=== PATIENT | female | born 1945 | race Caucasian/White ===

== ENCOUNTER → 2024-07-23 | Outpatient (CLI) | payer MEDICARE, SELFPAY ==
--- NOTE | 2024-07-23 12:35 | XR_ITS ---
Examination: Bone densitometry Date and time of exam:July 23, 2024 1213 hrs. Indications: Menopause age 51. Also wrist fracture proximal history osteoporosis Technique: Forearm and hip total bone mineralization values of an calculated. Peak reference and age match control results have been displayed. Findings: Forearm total bone mineralization is0.426 gm/cm2. This is 2.7 standard deviations below peak reference. This is 0.5 standard deviations above age-matched controls. Hip total bone mineralization is 0.735 gm/cm2 This is 1.7 standard deviations below peak reference. This is 0.4 standard deviations below age-matched controls Impression: There is osteopenia based on forearm measurements. There is osteopenia based on hip measurements 4 mm before meals is decreased 3.6% compared with June 12 2021 Hip mineralization is decreased 1.0% compared with June 12 2021
--- NOTE | 2024-07-23 13:00 | XR_ITS ---
Examination: Screening digital mammography, bilateral Computer aided detection 3-D breast Tomosynthesis, bilateral Date and time of exam: 07/23/2024, 11:56 AM Comparisons: 07/23/2023 Indications: Screening Technique: Nonmagnified MLO, CC views of the breasts to been obtained, reconstructed from 3-D Tomosynthesis images. R2 computer aided detection program utilized for evaluation of suspicious masses and/or abnormal calcifications. 3-D Tomosynthesis images obtained. Technologist: Findings: There are scattered areas of fibroglandular density. No evidence of abnormal masses or suspicious calcifications. Impression: BI-RADS category 1: Negative findings (within normal) Recommend 1 year follow-up mammogram
== END | disposition home or self-care (01) ==
PROVIDERS: PCP Family Medicine; Referring Provider Family Medicine; Visit Provider Family Medicine
DX: Z12.31 Encounter for screening mammogram for malignant neoplasm of breast (principal); R92.313 Mammographic fatty tissue density, bilateral breasts; M85.89 Other specified disorders of bone density and structure, multiple sites
CPT/HCPCS: 77063; 77067; 77080

== ENCOUNTER → 2024-07-23 | Outpatient (CLI) | payer MEDICARE, SELFPAY ==
[2024-07-23 11:01] LABS: Basophils # (Auto) 0.1 Thou/mm3 (0.0-0.2); Basophils % (Auto) 2 % (0-2.5); Eosinophils # (Auto) 0.3 Thou/mm3 (0.0-0.5); Eosinophils % (Auto) 5 % (0-10); Hematocrit 39.8 % (36.0-46.0); Hemoglobin 12.9 g/dL (12.0-16.0); Immature Granulocytes % (Auto) 0 % (0-0); Immature Granulocytes Auto 0.01 Thou/mm3 (0.00-0.00); Lymphocytes # (Auto) 2.3 Thou/mm3 (1.0-4.8); Lymphocytes % (Auto) 35 % (10-50); Mean Corpuscular HGB Conc 32.4 g/dl (31.0-37.0); Mean Corpuscular Hemoglobin 31.4 pg (25.0-35.0); Mean Corpuscular Volume 97 fL (80-100); Monocytes # (Auto) 0.6 Thou/mm3 (0.0-0.8); Monocytes % (Auto) 8 % (0-12); Neutrophils # (Auto) 3.3 Thou/mm3 (1.8-7.7); Neutrophils % (Auto) 50 % (37-80); Nucleated Red Blood Cell % 0 /100 WBC (0); Platelet Count 231 Thou/mm3 (140-440); RDW Standard Deviation 46.8 fL (36.4-46.3); Red Blood Count 4.11 Miln/mm3 (4.00-5.20); White Blood Count 6.5 Thou/mm3 (3.6-11.0)
[2024-07-23 11:21] LABS: Alanine Aminotransferase 19 U/L (10-49); Albumin/Globulin Ratio 1.5 (1.2-2.2); Alkaline Phosphatase 53 U/L (46-116); Anion Gap 7 (7-16); Aspartate Amino Transferase 27 U/L (0-34); BUN/Creatinine Ratio 19 Ratio (12-20); Bilirubin,Total 0.6 mg/dL (0.3-1.2); Blood Urea Nitrogen 13 mg/dL (9-23); Calcium 9.2 mg/dL (8.3-10.6); Calcium (Corrected) 9.2 mg/dL (8.5-10.1); Carbon Dioxide 27.5 mMol/L (20.0-31.0); Chloride 105 mMol/L (98-107); Cholesterol 189 mg/dL (132-200); Creatinine (Component) 0.7 mg/dL (0.6-1.3); Globulin 2.6 gm/dL (2.3-3.5); Glucose 92 mg/dL (74-106); HDL Cholesterol 64 mg/dL (40-60); LDL Cholesterol,Calculated 109 mg/dL (0-130); Osmolality,Calculated 277 (275-295); Potassium 4.6 mMol/L (3.4-5.1); Sodium 139 mMol/L (136-145); Thyroid Stimulating Hormone 2.42 uIU/mL (0.55-4.78); Total Protein 6.6 gm/dL (5.7-8.2); Triglycerides 81 mg/dL (30-150); eGFR > 60 See Note
== END | disposition home or self-care (01) ==
PROVIDERS: PCP Family Medicine; Referring Provider Family Medicine; Visit Provider Family Medicine
DX: E78.2 Mixed hyperlipidemia (principal)
CPT/HCPCS: 36415; 80053; 80061; 84443; 85025

== ENCOUNTER 2024-08-19 10:10 | Day surgery (SDC) | payer MEDICARE, SELFPAY ==
--- NOTE | 2024-08-18 11:36 | EKG_ITS ---
[facility] Test Date: 2024-08-18 Pat Name: ANUSHA MARTINO Department: Room: - Gender: Female Sas Bi Developer: ADINA : 1945 Requested By: Tung Burnett Order Number: [id number] Reading MD: Tung Burnett Measurements Intervals [place] Rate: 79 P: 59 OK: 152 QRS: 8 QRSD: 80 T: 20 QT: 350 QTc: 402 Interpretive Statements SINUS RHYTHM POSSIBLE LEFT ATRIAL ENLARGEMENT [-0.1mV P WAVE IN V1/V2] No previous ECG available for comparison /[id number]/S0/[id number]/[id number].pdf
[2024-08-18 13:34] LABS: Basophils # (Auto) 0.1 Thou/mm3 (0.0-0.2); Basophils % (Auto) 1 % (0-2.5); Eosinophils # (Auto) 0.4 Thou/mm3 (0.0-0.5); Eosinophils % (Auto) 4 % (0-10); Hematocrit 40.2 % (36.0-46.0); Hemoglobin 13.3 g/dL (12.0-16.0); Immature Granulocytes % (Auto) 0 % (0-0); Immature Granulocytes Auto 0.03 Thou/mm3 (0.00-0.00); Lymphocytes # (Auto) 2.6 Thou/mm3 (1.0-4.8); Lymphocytes % (Auto) 31 % (10-50); Mean Corpuscular HGB Conc 33.1 g/dl (31.0-37.0); Mean Corpuscular Hemoglobin 31.8 pg (25.0-35.0); Mean Corpuscular Volume 96 fL (80-100); Monocytes # (Auto) 0.7 Thou/mm3 (0.0-0.8); Monocytes % (Auto) 8 % (0-12); Neutrophils # (Auto) 4.6 Thou/mm3 (1.8-7.7); Neutrophils % (Auto) 55 % (37-80); Nucleated Red Blood Cell % 0 /100 WBC (0); Platelet Count 238 Thou/mm3 (140-440); RDW Standard Deviation 46.4 fL (36.4-46.3); Red Blood Count 4.18 Miln/mm3 (4.00-5.20); White Blood Count 8.4 Thou/mm3 (3.6-11.0)
[2024-08-18 13:40] LABS: Partial Thromboplastin Time 26.2 Seconds (22.0-36.0)
[2024-08-18 13:42] LABS: Anion Gap 7 (7-16); BUN/Creatinine Ratio 16 Ratio (12-20); Blood Urea Nitrogen 13 mg/dL (9-23); Calcium 9.6 mg/dL (8.3-10.6); Carbon Dioxide 27.4 mMol/L (20.0-31.0); Chloride 101 mMol/L (98-107); Creatinine (Component) 0.8 mg/dL (0.6-1.3); Glucose 106 mg/dL (74-106); Osmolality,Calculated 270 (275-295); Potassium 4.1 mMol/L (3.4-5.1); Sodium 135 mMol/L (136-145); eGFR > 60 See Note
[2024-08-18 16:14] VITALS: BMI 25.7
[2024-08-19] VITALS (14 sets, daily range): BP systolic 133–189; BP diastolic 72–112; PULSE 81–99; RESP 15–22; TEMP 36.1–36.7; O2SAT 97–100
--- NOTE | 2024-08-19 12:35 | PC.NURSE ---
1235 patient is awake, alert, breathing unlabored, s/p LHC , TR band present to right wrist, no bleeding or hematoma noted. Report received from Gerald MAYBERRY, patient to recover for 3 hours and resume home medications.
--- NOTE | 2024-08-19 14:13 | ESOP_ITS ---
RE: ANUSHA MARTINO : 1945 DATE OF OPERATION: 08/19/2024 PROCEDURE PERFORMED: 1. Diagnostic left heart cardiac catheterization, selective coronary angiogram, and left ventricular angiogram, CPT 39970. 2. Conscious sedation, 30 minutes duration. 3. Ultrasound-guided access, right radial artery. DIAGNOSES: Coronary artery disease and abnormal stress test. HISTORY AND INDICATIONS: The patient is an 79-year-old female with a past medical history of hypertension and risk factors of CAD, had recurrence of chest pain and shortness of breath. Cardiac stress test and nuclear scan was abnormal. Coronary angiogram was recommended to assess the patient is a candidate for coronary intervention and revascularization. DESCRIPTION OF PROCEDURE: The patient was brought to cardiac catheterization laboratory where she was given 2 mg of Versed and 50 mcg of fentanyl for sedation. Right radial approach was taken. Right radial artery was cannulated with ultrasound guidance. Micropuncture technique was used. Cannulated right radial artery, 6-[place] introduced. Selective right and left coronary angiogram was performed by 5-[place] TIG-4 diagnostic catheter and coronary angiogram performed. Left heart catheterization, left ventricular angiogram performed by 5-[place] TIG-4 diagnostic catheter. The patient tolerated the procedure well. No complications. Coronary angiogram showed following findings. Right coronary artery is large and dominant. PDA and posterolateral branches showed calcification at proximal RCA showed irregularities. Posterior descending artery showed mild plaque at the bifurcation. No significant stenosis. Left coronary system, left main coronary artery showed calcification. Left anterior descending artery showed proximal vessel calcification. No significant stenosis. No obstructive disease is detected. Circumflex artery is nondominant, appeared normal. Gives off obtuse marginal branch. Left ventricular pressure recorded to be 120/10, EDP 15, aortic pressure 110/70. There is no gradient across the aortic valve. Left ventricular angiogram showed normal left ventricular wall motion, ejection fraction 65-70%. SUMMARY OF FINDINGS: 1. Coronary calcification, mild atherosclerotic plaque involving left anterior descending artery, right coronary artery, no significant obstructive coronary artery disease. 2. Normal left ventricular function. 3. Normal hemodynamics. RECOMMENDATIONS: The patient is reassured about the absence of significant obstructive coronary artery disease. Prognosis is fair in the absence of significant coronary artery disease. DT: 12:35:59 TT: 14:11:00 Ref: [id number] - TID: [id number]
--- NOTE | 2024-08-19 15:51 | PC.NURSE ---
1425 TR band to right wrist removed, no bleeding or hematoma noted, site covered with tegaderm and coban 1528 patient is awake, alert, breathing unlabored, dressing to right wrist dry with no bleeding or hematoma. Discharge instructions given to patient and son Parish, patient discharged home in wheelchair with all belongings. patient ambulated to bathroom and voided. tolerate food tray with no nausea or vomiting
== END 2024-08-19 15:28 | disposition home or self-care (01) ==
PROVIDERS: PCP Family Medicine; Referring Provider Internal Medicine Cardiovascular Disease; Visit Provider Internal Medicine Cardiovascular Disease
PROC: (CPT 93458; principal; 2024-08-19 11:30)
DX: I25.118 Atherosclerotic heart disease of native coronary artery with other forms of angina pectoris (principal); I10 Essential (primary) hypertension; I35.1 Nonrheumatic aortic (valve) insufficiency; I34.0 Nonrheumatic mitral (valve) insufficiency; E78.00 Pure hypercholesterolemia, unspecified; Z01.810 Encounter for preprocedural cardiovascular examination
CPT/HCPCS: 93458; 36415; 80048; 85025; 85610; 85730; 93005; 99152; A4649; C1887; C1894; J0171; J0461; J1643; J2250; J2310; J2371; J3010; J3490